=== PATIENT | female | born 1990 | race Hispanic/Latino ===

== ENCOUNTER 2022-10-19 21:31 | Emergency (ER) | payer MEDICAID, SELFPAY ==
[2022-10-19 23:23] LABS: #Eosinphils 0.5 10x3/uL (0.0-0.5); #Monocytes 0.6 10x3/uL (0.0-1.1); #Neutrophils 4.7 10x3/uL (1.5-8.4); %Basophils 0.5 % (0.0-2.0); %Eosinophils 6.1 % (0.0-6.0); %Lymphocytes 21.9 % (18.0-47.0); %Monocytes 8.4 % (0.0-10.0); %Neutrophils 62.7 % (40.0-75.0); Hemoglobin 12.1 g/dL (12.0-15.5); Mean Corpuscular HGB CONC 34.3 g/dL (32.0-36.0); Mean Corpuscular Hemoglobin 30.4 pg (27.0-33.0); Mean Corpuscular Volume 88.7 fl (81.6-98.3); Mean Platelet Volume 11.1 fl (7.4-10.4); Platelet Count 166 10x3/uL (150-450); RBC Distribution Width 12.8 % (11.5-14.5); Red Blood Cell (RBC) Count 3.98 10x6/uL (3.90-5.03); White Blood Cell (WBC) Count 7.5 10x3/uL (3.5-10.5)
[2022-10-19 23:39] LABS: ALT (SGPT) 17 U/L (8-55); AST (SGOT) 17 U/L (5-34); Albumin 4.1 g/dL (3.5-5.0); Alkaline Phosphatase 41 U/L (40-110); Anion Gap 16 mmol/L (10-20); BUN (Urea Nitrogen) 6 mg/dL (7.0-18.7); Bilirubin, Total 0.2 mg/dL (0.2-1.2); Calc. Creatinine Clearance 0 mL/min (70-130); Calcium 9.2 mg/dL (7.8-10.44); Carbon Dioxide 22 mmol/L (22-29); Chloride 105 mmol/L (98-107); Estimated GFR 127; Globulin 2.8 g/dL (2.4-3.5); Glucose 89 mg/dL (70-105); Potassium 3.5 mmol/L (3.5-5.1); Protein, Total 6.9 g/dL (6.0-8.3); Sodium 139 mmol/L (136-145)
[2022-10-20 00:53] LABS: Bilirubin Neg (Negative); Blood, Urine 250 (Negative); Clarity Bloody (Clear); Glucose, Urine (Dipstick) Normal (Negative); Ketone, Urine 50 mg/dL (Negative); Leukocyte 25 (Negative); Nitrite Negative (Negative); Protein, Urine (Dipstick) 30 mg/dl (Neg-Trace); Urobilinogen Normal mg/dL (Less than 2); pH, Urine 6.5 (5.0-9.0)
[2022-10-20 01:00] LABS: RBC/HPF Greater than 50 HPF (0-3); Squamous Epithelial 0-3 HPF (0-3)
[2022-10-20 01:01] LABS: Bacteria/HPF Rare-Few HPF (None Seen)
[2022-10-21 10:53] LABS: GC by PCR, Vaginal Swab Not Detected (NotDetected)
== END 2022-10-19 23:11 | disposition home or self-care (01) ==
LOC: CSHERS 21:31
DX: O20.0 Threatened abortion (principal); O34.61 Maternal care for abnormality of vagina, first trimester; N76.0 Acute vaginitis; Z3A.12 12 weeks gestation of pregnancy
CPT/HCPCS: 36415; 76856; 80053; 81003; 81015; 85025; 86900; 86901; 87480; 87510; 87591; 87660

== ENCOUNTER 2022-10-30 01:42 | Inpatient (IN) | payer MEDICAID, SELFPAY ==
[2022-10-30 01:55] VITALS: BMI 21.8
[2022-10-30] MEDS ORDERED: Ondansetron PF 4 MG/2 ML Vial IVP PRN (02:42)
[2022-10-30] MEDS ORDERED: hydrALAZINE 20 MG/ML VIAL SLOW IVP PRN (02:42)
[2022-10-30] MEDS ORDERED: cefTRIAXone\\ROCEPHIN 1 GM in Sodium Chloride 0.9% 100 ML IVPB SCH (04:00)
[2022-10-30 04:03] LABS: ALT (SGPT) 33 U/L (8-55); AST (SGOT) 57 U/L (5-34); Albumin 3.2 g/dL (3.5-5.0); Alkaline Phosphatase 69 U/L (40-110); Anion Gap 13 mmol/L (10-20); BUN (Urea Nitrogen) 4 mg/dL (7.0-18.7); Bilirubin, Total 0.5 mg/dL (0.2-1.2); Calc. Creatinine Clearance 143 mL/min (70-130); Calcium 8.3 mg/dL (7.8-10.44); Carbon Dioxide 20 mmol/L (22-29); Chloride 106 mmol/L (98-107); Estimated GFR 129; Globulin 2.6 g/dL (2.4-3.5); Glucose 104 mg/dL (70-105); Potassium 3.9 mmol/L (3.5-5.1); Protein, Total 5.8 g/dL (6.0-8.3); Sodium 135 mmol/L (136-145)
[2022-10-30 04:56] LABS: PTT 32.2 sec (22.0-33.0); Prothrombin Time 10.7 sec (9.5-12.1)
[2022-10-30] MEDS: Acetaminophen 325 MG TAB PO PRN ×3 (05:12→23:10)
[2022-10-30 08:18] LABS: Lactic Acid 1.7 mmol/L (0.5-2.2)
[2022-10-30] MEDS ORDERED: Lactated Ringer's 1,000 ML IV SCH (08:30)
[2022-10-30 08:32] LABS: Troponin I 0.386 ng/mL (< 0.028)
[2022-10-30] MEDS ORDERED: Iopamidol 370 76% 100 ML VIAL ONE (09:12)
[2022-10-30] MEDS ORDERED: Cefepime 2 GM in Sodium Chloride 0.9% 100 ML IVPB SCH ×2 (10:00→14:00)
[2022-10-30] MEDS ORDERED: Vancomycin 1 GM in Premix Bag 1 BAG IVPB SCH (10:00)
[2022-10-30] MEDS: Vancomycin HCl 750 MG in Sodium Chloride 0.9% 250 ML 250 ML IVPB SCH ×2 (10:23→20:05)
[2022-10-30 13:02] LABS: Troponin I 0.489 ng/mL (< 0.028)
[2022-10-30] MEDS ORDERED: Furosemide 40 MG/4 ML VIAL ONE (13:12)
[2022-10-30 13:29] LABS: Base Excess (BEa) -3.7 mEq/L (-2.0 to +3.0); CO2 Tension 23.5 mmHg (35.0-45.0); Calcium, Ionized (arterial) 1.11 mmol/L (1.12-1.30); Carboxyhemoglobin (COHb) 0.3 gm% (0.0-3.0); Hematocrit-ABG 34 % (36.0-47.0); Hemoglobin (Hb) 11.5 g/dL (12.0-16.0); O2 Tension (PaO2), arterial 99.9 mmHg (80.0-100.0); Potassium - ABG Lab 3.41 mmol/L (3.70-5.30); Puncture Site LRA; pH, Arterial 7.501 (7.35-7.45)
[2022-10-30] MEDS ORDERED: Furosemide 40 MG/4 ML VIAL SLOW IVP SCH (13:30)
[2022-10-30 13:31] LABS: ALV-art Gradient 583.725 mmHg (0-20)
[2022-10-30] MEDS ORDERED: Ondansetron ODT 4 MG TAB SL PRN (14:15)
[2022-10-30 14:40] LABS: Hemoglobin 10.2 g/dL (12.0-15.5); Mean Corpuscular HGB CONC 34.7 g/dL (32.0-36.0); Mean Corpuscular Hemoglobin 30.3 pg (27.0-33.0); Mean Corpuscular Volume 87.2 fl (81.6-98.3); Mean Platelet Volume 11.4 fl (7.4-10.4); Platelet Count 106 10x3/uL (150-450); RBC Distribution Width 13.1 % (11.5-14.5); Red Blood Cell (RBC) Count 3.37 10x6/uL (3.90-5.03); White Blood Cell (WBC) Count 6.8 10x3/uL (3.5-10.5)
[2022-10-30 14:50] LABS: D-Dimer Test 13.54 mg/L FEU (0.19-0.50); PTT 32.5 sec (22.0-33.0); Prothrombin Time 10.7 sec (9.5-12.1)
[2022-10-30 14:51] LABS: ALT (SGPT) 38 U/L (8-55); AST (SGOT) 60 U/L (5-34); Albumin 3.2 g/dL (3.5-5.0); Alkaline Phosphatase 79 U/L (40-110); Anion Gap 18 mmol/L (10-20); BUN (Urea Nitrogen) 5 mg/dL (7.0-18.7); Bilirubin, Total 0.9 mg/dL (0.2-1.2); Calc. Creatinine Clearance 125 mL/min (70-130); Calcium 7.9 mg/dL (7.8-10.44); Carbon Dioxide 15 mmol/L (22-29); Chloride 103 mmol/L (98-107); Estimated GFR 125; Globulin 2.2 g/dL (2.4-3.5); Glucose 114 mg/dL (70-105); Potassium 2.8 mmol/L (3.5-5.1); Protein, Total 5.4 g/dL (6.0-8.3); Sodium 133 mmol/L (136-145)
[2022-10-30 15:15] LABS: SARS-CoV-2 NAA Rapid Test Not Detected (NotDetected)
[2022-10-30] MEDS ORDERED: Potassium Chloride 20 MEQ in Premix Bag 2 BAG IVPB SCH (15:15)
[2022-10-30] MEDS ORDERED: Potassium Chloride 20 MEQ TAB PO SCH ×2 (15:15→17:45)
[2022-10-30] MEDS ORDERED: Potassium Chloride 20 MEQ in Premix Bag 1 BAG IVPB SCH (15:30)
[2022-10-30] MEDS: Potassium Chloride 10 MEQ in Premix Bag 1 BAG IVPB SCH ×2 (15:53→19:51)
[2022-10-30 16:38] LABS: Magnesium 1.3 mg/dL (1.6-2.6)
[2022-10-30] MEDS ORDERED: Magnesium 2 GM/50 ML(in water) 2 GM in Premix Bag 1 BAG IVPB SCH (16:45)
[2022-10-30 17:18] LABS: Troponin I 0.897 ng/mL (< 0.028)
[2022-10-30 20:19] LABS: Troponin I 0.414 ng/mL (< 0.028)
[2022-10-30] MEDS ORDERED: Electrolyte Replacement Protocol 1 EACH FS SCH (20:45)
[2022-10-30] MEDS: Cefepime 2 GM in Sodium Chloride 0.9% 100 ML IVPB SCH (21:26)
[2022-10-30 22:02] LABS: Bilirubin Neg (Negative); Blood, Urine 50 (Negative); Clarity Clear (Clear); Glucose, Urine (Dipstick) 250 mg/dL (Negative); Ketone, Urine 150 mg/dL (Negative); Leukocyte 25 (Negative); Nitrite Negative (Negative); Protein, Urine (Dipstick) 15 mg/dl (Neg-Trace); Urobilinogen Normal mg/dL (Less than 2)
[2022-10-30 22:11] LABS: CAUTI Indications for Culture Dysuria,urgency,freq; Squamous Epithelial 0-3 HPF (0-3)
[2022-10-30 22:12] LABS: Urine Culture Reflex No No
[2022-10-30 22:22] LABS: Bacteria/HPF 1+ HPF (None Seen)
[2022-10-30 23:27] LABS: Hemoglobin 9.7 g/dL (12.0-15.5); Mean Corpuscular HGB CONC 34.3 g/dL (32.0-36.0); Mean Corpuscular Hemoglobin 30.4 pg (27.0-33.0); Mean Corpuscular Volume 88.7 fl (81.6-98.3); Mean Platelet Volume 11.6 fl (7.4-10.4); Platelet Count 89 10x3/uL (150-450); RBC Distribution Width 13.2 % (11.5-14.5); Red Blood Cell (RBC) Count 3.19 10x6/uL (3.90-5.03); White Blood Cell (WBC) Count 8.1 10x3/uL (3.5-10.5)
[2022-10-30 23:36] LABS: ALT (SGPT) 34 U/L (8-55); AST (SGOT) 57 U/L (5-34); Alkaline Phosphatase 72 U/L (40-110); Anion Gap 15 mmol/L (10-20); BUN (Urea Nitrogen) 4 mg/dL (7.0-18.7); Bilirubin, Total 0.6 mg/dL (0.2-1.2); Calc. Creatinine Clearance 152 mL/min (70-130); Calcium 7.7 mg/dL (7.8-10.44); Carbon Dioxide 17 mmol/L (22-29); Chloride 107 mmol/L (98-107); Estimated GFR 131; Globulin 1.9 g/dL (2.4-3.5); Glucose 102 mg/dL (70-105); Magnesium 2.2 mg/dL (1.6-2.6); Phosphorus 3.3 mg/dL (2.3-4.7); Potassium 3.4 mmol/L (3.5-5.1); Protein, Total 4.9 g/dL (6.0-8.3); Sodium 136 mmol/L (136-145)
[2022-10-30 23:37] LABS: MDiff Complete? YES
[2022-10-30 23:47] LABS: Troponin I 0.288 ng/mL (< 0.028)
[2022-10-30 23:53] LABS: RBC Morph Comment Within Normal Limits
[2022-10-30 23:57] LABS: Band 11 % (5-11); Eosinophils 2 % (0-10); Lymphocytes 9 % (21-51); Monocytes 6 % (0-10); Neutrophil 72 % (42-75)
[2022-10-30 23:59] LABS: Platelet Morphology Comment Appears Decreased
[2022-10-31] MEDS ORDERED: Lactated Ringer's 500 ML IV SCH (00:45)
[2022-10-31] MEDS: Vancomycin HCl 750 MG in Sodium Chloride 0.9% 250 ML 250 ML IVPB SCH ×3 (02:33→10:44)
[2022-10-31 03:29] LABS: ALT (SGPT) 28 U/L (8-55); AST (SGOT) 45 U/L (5-34); Alkaline Phosphatase 59 U/L (40-110); Anion Gap 12 mmol/L (10-20); BUN (Urea Nitrogen) 4 mg/dL (7.0-18.7); Bilirubin, Total 0.6 mg/dL (0.2-1.2); Calc. Creatinine Clearance 159 mL/min (70-130); Calcium 7.7 mg/dL (7.8-10.44); Carbon Dioxide 18 mmol/L (22-29); Chloride 109 mmol/L (98-107); Estimated GFR 133; Globulin 1.9 g/dL (2.4-3.5); Glucose 90 mg/dL (70-105); Potassium 3.2 mmol/L (3.5-5.1); Protein, Total 4.9 g/dL (6.0-8.3); Sodium 136 mmol/L (136-145)
[2022-10-31 03:34] LABS: Hemoglobin 8.4 g/dL (12.0-15.5); Mean Corpuscular HGB CONC 33.7 g/dL (32.0-36.0); Mean Corpuscular Hemoglobin 30.1 pg (27.0-33.0); Mean Corpuscular Volume 89.2 fl (81.6-98.3); Mean Platelet Volume 11.6 fl (7.4-10.4); Platelet Count 87 10x3/uL (150-450); RBC Distribution Width 13.2 % (11.5-14.5); Red Blood Cell (RBC) Count 2.79 10x6/uL (3.90-5.03); White Blood Cell (WBC) Count 7.2 10x3/uL (3.5-10.5)
[2022-10-31 03:42] LABS: MDiff Complete? YES
[2022-10-31 03:59] LABS: Band 15 % (5-11); Eosinophils 1 % (0-10); Lymphocytes 12 % (21-51); Monocytes 7 % (0-10); Neutrophil 65 % (42-75)
[2022-10-31 04:00] LABS: RBC Morph Comment Within Normal Limits
[2022-10-31 04:01] LABS: Platelet Morphology Comment Appears Decreased
[2022-10-31] MEDS ORDERED: Potassium Chloride 20 MEQ TAB PO SCH ×2 (05:00→10:30)
[2022-10-31] MEDS: Cefepime 2 GM in Sodium Chloride 0.9% 100 ML IVPB SCH ×3 (05:48→22:12)
[2022-10-31] MEDS ORDERED: Magnesium 2 GM/50 ML(in water) 2 GM in Premix Bag 1 BAG IVPB SCH (08:00)
[2022-10-31] MEDS: Acetaminophen 325 MG TAB PO PRN ×3 (08:28→21:21)
[2022-10-31] MEDS: Potassium Chloride 10 MEQ in Premix Bag 1 BAG IVPB SCH ×2 (08:29→10:46)
[2022-10-31] MEDS: Ferrous Gluconate 324 MG TAB PO SCH (08:41)
[2022-10-31] MEDS ORDERED: Prenatal Vitamin 1 TAB PO SCH (09:00)
[2022-10-31 10:20] LABS: Vancomycin, Trough 11.7 ug/mL
[2022-10-31 12:33] LABS: Vancomycin, Peak 28.7 ug/mL (20.0-40.0)
[2022-10-31 12:58] LABS: Anion Gap 12 mmol/L (10-20); BUN (Urea Nitrogen) Less than 4 mg/dL (7.0-18.7); Calc. Creatinine Clearance 163 mL/min (70-130); Carbon Dioxide 18 mmol/L (22-29); Chloride 109 mmol/L (98-107); Estimated GFR 133; Glucose 108 mg/dL (70-105); Potassium 3.6 mmol/L (3.5-5.1); Sodium 135 mmol/L (136-145)
[2022-10-31 15:06] LABS: Chlamydia by PCR, Vaginal Swab Not Detected (NotDetected); GC by PCR, Vaginal Swab Not Detected (NotDetected)
[2022-10-31] MEDS: Vancomycin HCl 1 GM in Sodium Chloride 0.9% 250 ML 250 ML IVPB SCH (19:17)
[2022-11-01] MEDS: Vancomycin HCl 1 GM in Sodium Chloride 0.9% 250 ML 250 ML IVPB SCH ×2 (02:29→11:08)
[2022-11-01 03:43] LABS: #Eosinphils 0.2 10x3/uL (0.0-0.5); #Monocytes 0.5 10x3/uL (0.0-1.1); #Neutrophils 6.8 10x3/uL (1.5-8.4); %Basophils 0.5 % (0.0-2.0); %Eosinophils 2.1 % (0.0-6.0); %Lymphocytes 11.1 % (18.0-47.0); %Neutrophils 79.9 % (40.0-75.0); Hemoglobin 8.9 g/dL (12.0-15.5); Mean Corpuscular HGB CONC 33.3 g/dL (32.0-36.0); Mean Corpuscular Hemoglobin 30.1 pg (27.0-33.0); Mean Corpuscular Volume 90.2 fl (81.6-98.3); Mean Platelet Volume 11.4 fl (7.4-10.4); Platelet Count 119 10x3/uL (150-450); RBC Distribution Width 13.3 % (11.5-14.5); Red Blood Cell (RBC) Count 2.96 10x6/uL (3.90-5.03); White Blood Cell (WBC) Count 8.5 10x3/uL (3.5-10.5)
[2022-11-01 03:49] LABS: ALT (SGPT) 33 U/L (8-55); AST (SGOT) 35 U/L (5-34); Alkaline Phosphatase 75 U/L (40-110); Anion Gap 14 mmol/L (10-20); BUN (Urea Nitrogen) Less than 4 mg/dL (7.0-18.7); Bilirubin, Total 0.4 mg/dL (0.2-1.2); Calc. Creatinine Clearance 156 mL/min (70-130); Calcium 7.9 mg/dL (7.8-10.44); Carbon Dioxide 19 mmol/L (22-29); Chloride 109 mmol/L (98-107); Estimated GFR 132; Globulin 1.7 g/dL (2.4-3.5); Glucose 84 mg/dL (70-105); Magnesium 1.7 mg/dL (1.6-2.6); Potassium 3.2 mmol/L (3.5-5.1); Protein, Total 4.7 g/dL (6.0-8.3); Sodium 139 mmol/L (136-145)
[2022-11-01] MEDS: Acetaminophen 325 MG TAB PO PRN ×2 (04:30→11:06)
[2022-11-01] MEDS: Cefepime 2 GM in Sodium Chloride 0.9% 100 ML IVPB SCH (04:32)
[2022-11-01] MEDS ORDERED: Potassium Chloride 20 MEQ TAB PO SCH ×2 (08:00→09:00)
[2022-11-01] MEDS ORDERED: Magnesium 2 GM/50 ML(in water) 2 GM in Premix Bag 1 BAG IVPB SCH (09:00)
[2022-11-01] MEDS: Ferrous Gluconate 324 MG TAB PO SCH (09:09)
[2022-11-01] MEDS: Prenatal Vitamin 1 TAB PO SCH (09:09)
[2022-11-01] MEDS ORDERED: Iron Sucrose Complex 500 MG in Sodium Chloride 0.9% 250 ML 250 ML IVPB SCH (11:45)
[2022-11-01] MEDS ORDERED: Acetaminophen 500 MG TAB PO SCH (12:00)
[2022-11-01] MEDS ORDERED: metroNIDAZOLE 500 MG TAB PO SCH (13:00)
[2022-11-01] MEDS: AMOXicillin 250 MG CAP PO SCH ×2 (13:49→22:06)
[2022-11-01] MEDS ORDERED: AMOXicillin 500 MG CAP PO SCH (21:00)
[2022-11-01] MEDS: metroNIDAZOLE 500 MG TAB PO SCH (22:06)
[2022-11-02 03:43] LABS: ALT (SGPT) 34 U/L (8-55); AST (SGOT) 47 U/L (5-34); Albumin 3.2 g/dL (3.5-5.0); Alkaline Phosphatase 84 U/L (40-110); Anion Gap 15 mmol/L (10-20); BUN (Urea Nitrogen) Less than 4 mg/dL (7.0-18.7); Bilirubin, Total 0.5 mg/dL (0.2-1.2); Calc. Creatinine Clearance 159 mL/min (70-130); Calcium 7.7 mg/dL (7.8-10.44); Carbon Dioxide 19 mmol/L (22-29); Chloride 104 mmol/L (98-107); Estimated GFR 133; Globulin 1.9 g/dL (2.4-3.5); Glucose 83 mg/dL (70-105); Magnesium 1.8 mg/dL (1.6-2.6); Potassium 3.3 mmol/L (3.5-5.1); Protein, Total 5.1 g/dL (6.0-8.3); Sodium 135 mmol/L (136-145)
[2022-11-02 03:50] LABS: #Eosinphils 0.1 10x3/uL (0.0-0.5); #Monocytes 0.5 10x3/uL (0.0-1.1); #Neutrophils 5.4 10x3/uL (1.5-8.4); %Basophils 0.4 % (0.0-2.0); %Eosinophils 1.2 % (0.0-6.0); %Monocytes 7.2 % (0.0-10.0); %Neutrophils 77.8 % (40.0-75.0); Hemoglobin 9.8 g/dL (12.0-15.5); Mean Corpuscular HGB CONC 34.6 g/dL (32.0-36.0); Mean Corpuscular Hemoglobin 30.2 pg (27.0-33.0); Mean Corpuscular Volume 87.1 fl (81.6-98.3); Mean Platelet Volume 11.5 fl (7.4-10.4); Platelet Count 125 10x3/uL (150-450); RBC Distribution Width 13.3 % (11.5-14.5); Red Blood Cell (RBC) Count 3.25 10x6/uL (3.90-5.03); White Blood Cell (WBC) Count 6.9 10x3/uL (3.5-10.5)
[2022-11-02 05:27] LABS: Platelet Morphology Comment Appears Decreased; RBC Morph Comment Within Normal Limits
[2022-11-02] MEDS: AMOXicillin 250 MG CAP PO SCH (05:51)
[2022-11-02] MEDS: Acetaminophen 325 MG TAB PO PRN (06:35)
[2022-11-02] MEDS ORDERED: Lactated Ringer's 1,000 ML IV SCH (07:15)
[2022-11-02 07:56] VITALS: TEMP 97.9
[2022-11-02] MEDS ORDERED: Potassium Chloride 20 MEQ TAB PO SCH (09:00)
[2022-11-02] MEDS ORDERED: Magnesium 2 GM/50 ML(in water) 2 GM in Premix Bag 1 BAG IVPB SCH (09:00)
[2022-11-02] MEDS ORDERED: Calcium Carbonate 500 MG ChewTAB PO PRN (09:20)
[2022-11-02] MEDS: Prenatal Vitamin 1 TAB PO SCH (09:50)
[2022-11-02] MEDS: Ferrous Gluconate 324 MG TAB PO SCH (09:50)
[2022-11-02] MEDS: metroNIDAZOLE 500 MG TAB PO SCH (09:50)
[2022-11-02 11:20] VITALS: BP 100/71
== END 2022-11-02 13:10 | disposition home or self-care (01) | DRG 831 ==
LOC: CSHANTE 01:42 → CSHIMCU 16:56 → CSHPED 10-31 13:14
PROVIDERS: ADMIT Student in an Organized Health Care Education/Training Program; ATTEND Student in an Organized Health Care Education/Training Program
PROC: 4A033R1 Measurement of Arterial Saturation, Peripheral, Percutaneous Approach (ICD-10-PCS; principal; 2022-10-30)
PROC: 3E0334Z Introduction of Serum, Toxoid and Vaccine into Peripheral Vein, Percutaneous Approach (ICD-10-PCS; 2022-10-30)
PROC: 5A0935A Assistance with Respiratory Ventilation, Less than 24 Consecutive Hours, High Flow/Velocity Cannula (ICD-10-PCS; 2022-10-30)
DX: O98.812 Other maternal infectious and parasitic diseases complicating pregnancy, second trimester (principal); A41.81 Sepsis due to Enterococcus; J96.01 Acute respiratory failure with hypoxia; O23.02 Infections of kidney in pregnancy, second trimester; E87.20 Acidosis, unspecified; E87.3 Alkalosis; O23.592 Infection of other part of genital tract in pregnancy, second trimester; I24.8 Other forms of acute ischemic heart disease; O99.412 Diseases of the circulatory system complicating pregnancy, second trimester; O46.8X2 Other antepartum hemorrhage, second trimester; B96.89 Other specified bacterial agents as the cause of diseases classified elsewhere; E87.6 Hypokalemia; O99.282 Endocrine, nutritional and metabolic diseases complicating pregnancy, second trimester; O99.512 Diseases of the respiratory system complicating pregnancy, second trimester; D64.9 Anemia, unspecified; O99.012 Anemia complicating pregnancy, second trimester; E83.42 Hypomagnesemia; Z20.822 Contact with and (suspected) exposure to COVID-19; Z3A.15 15 weeks gestation of pregnancy
CPT/HCPCS: 36415; 36600; 71275; 76770; 76805; 80053; 80202; 81001; 82805; 83605; 83735; 83880; 84100; 84132; 84145; 84484; 85025; 85049; 85300; 85362; 85379; 85384; 85610; 85730; 86140; 86850; 86900; 86901; 87040; 87480; 87491; 87510; 87591; 87660; 93005; 93010; 93306; 94760; 94762; J0692; J0696; J1756; J1940; J2405; J3370; J3475; J3480; J3490; J7050; J7120; P9045; Q9967